=== PATIENT | male | born 1995 | race African-American/Black ===

== ENCOUNTER 2016-06-22 07:45 | Emergency (ER) | payer BC, OTHER ==
[~2016-06-22] VITALS: Ht 170.2 cm; Wt 63.5 kg
[2016-06-22 09:45] VITALS: BP 115/69
[2016-06-22] MEDS ORDERED: LIDOCAINE VISCOUS 2% 15ML UD PO ONE (10:00)
[2016-06-22] MEDS ORDERED: IBUPROFEN 800 MG TAB PO ONE (10:15)
== END 2016-06-22 10:50 | disposition home or self-care (01) ==
LOC: ER 07:45
DX: J02.0 Streptococcal pharyngitis (principal)
CPT/HCPCS: 87880